=== PATIENT | male | born 1980 | race Caucasian/White ===

== ENCOUNTER 2022-10-02 17:33 | Emergency (ER) | payer MEDICAID, SELFPAY ==
--- NOTE | ~2022-10-02 | XR_ITS ---
EXAMINATION: XR shoulder LT min 2V, XR cervical spine 4V CLINICAL INFORMATION: Reason for Exam left shoulder pain ; left-sided neck pain COMPARISON: Cervical spine radiographs 09/09/2012 TECHNIQUE: 4 views left shoulder; AP, lateral, open-mouth odontoid, Fuchs, and bilateral oblique views cervical spine FINDINGS: Left shoulder: No acute fracture or dislocation. The glenohumeral joint space and acromiohumeral interval are maintained. AC joint is congruent and intact. Small periarticular ossicles/bone fragments along the superior aspect of the joint. No significant osteophyte formation. No evidence of calcific tendinopathy of the rotator cuff. The visualized left lung appears grossly clear. Cervical spine: C1-T1 are well visualized on the lateral view. Normal alignment of the cervical spine. No subluxation. No fracture or prevertebral soft tissue swelling. Atlantodens interval and C1-C2 alignment are maintained. Intervertebral disc space heights are preserved. Mild anterior endplate proliferative change at C6-C7 consistent with mild degenerative disc disease. Assessment for right neural foraminal narrowing is limited due to suboptimal positioning. Equivocal minimal right neural foraminal narrowing at C6-C7 versus artifact from positioning. No significant left neural foraminal stenosis. XR/XR cervical spine 4V IMPRESSION: 1. No acute osseous injury identified at the left shoulder. 2. No subluxation or fracture in the cervical spine. 3. Mild degenerative disc disease at C6-C7 with preserved disc space height.
--- NOTE | ~2022-10-02 | XR_ITS ---
EXAMINATION: XR shoulder LT min 2V, XR cervical spine 4V CLINICAL INFORMATION: Reason for Exam left shoulder pain ; left-sided neck pain COMPARISON: Cervical spine radiographs 09/09/2012 TECHNIQUE: 4 views left shoulder; AP, lateral, open-mouth odontoid, Fuchs, and bilateral oblique views cervical spine FINDINGS: Left shoulder: No acute fracture or dislocation. The glenohumeral joint space and acromiohumeral interval are maintained. AC joint is congruent and intact. Small periarticular ossicles/bone fragments along the superior aspect of the joint. No significant osteophyte formation. No evidence of calcific tendinopathy of the rotator cuff. The visualized left lung appears grossly clear. Cervical spine: C1-T1 are well visualized on the lateral view. Normal alignment of the cervical spine. No subluxation. No fracture or prevertebral soft tissue swelling. Atlantodens interval and C1-C2 alignment are maintained. Intervertebral disc space heights are preserved. Mild anterior endplate proliferative change at C6-C7 consistent with mild degenerative disc disease. Assessment for right neural foraminal narrowing is limited due to suboptimal positioning. Equivocal minimal right neural foraminal narrowing at C6-C7 versus artifact from positioning. No significant left neural foraminal stenosis. XR/XR shoulder LT min 2V IMPRESSION: 1. No acute osseous injury identified at the left shoulder. 2. No subluxation or fracture in the cervical spine. 3. Mild degenerative disc disease at C6-C7 with preserved disc space height.
[2022-10-02 17:51] VITALS: BP 151/101; PULSE 71; RESP 18; TEMP 36.6; O2SAT 98; BMI 26.6
--- NOTE | 2022-10-02 17:53 | ED.GENADULT ---
HPI - General Adult General Chief complaint: Extremity Injury, Upper <SHAWNA Neumann - Last Filed: 10/02/22 17:55> Stated complaint: L shoulder pain <SHAWNA Neumann - Last Filed: 10/02/22 17:55> Time Seen by Provider: 10/02/22 18:30 <SHAWNA Neumann - Last Filed: 10/02/22 17:55> Source: patient <Vanessa Costa NP - Last Filed: 10/03/22 00:16> Mode of arrival: ambulatory <Vanessa Costa NP - Last Filed: 10/03/22 00:16> Limitations: no limitations <Vanessa Costa NP - Last Filed: 10/03/22 00:16> History of Present Illness HPI narrative: 42-year-old male presents with left shoulder and neck pain that started this morning. States that it feels like more like a muscle spasm. He does not report any trauma or mechanical injury. Has full range of motion to his neck and arm. Does not report loss of sensation. <Vanessa Costa NP - Last Filed: 10/03/22 00:16> Onset (ago): day(s) (1) <Vanessa Costa NP - Last Filed: 10/03/22 00:16> Location: neck, left and upper extremity <Vanessa Costa NP - Last Filed: 10/03/22 00:16> Radiation: non-radiation <Vanessa Costa NP - Last Filed: 10/03/22 00:16> Severity: moderate <Vanessa Costa NP - Last Filed: 10/03/22 00:16> Severity scale (1-10): 6 <Vanessa Costa NP - Last Filed: 10/03/22 00:16> Quality: aching and constant <Vanessa Costa NP - Last Filed: 10/03/22 00:16> Pain Consistency: constant <Vanessa Costa NP - Last Filed: 10/03/22 00:16> Relieving factors: none <Vanessa Costa NP - Last Filed: 10/03/22 00:16> Exacerbating factors: movement <Vanessa Costa NP - Last Filed: 10/03/22 00:16> Associated symptoms: denies other symptoms <Vanessa Costa NP - Last Filed: 10/03/22 00:16> Treatments prior to arrival: NSAID and heat therapy <Vanessa Costa NP - Last Filed: 10/03/22 00:16> Related Data Home medications: Previous Rx's Medication Instructions Recorded cyclobenzaprine 10 mg tablet 10 mg PO TID PRN muscle spasm #14 10/02/22 tabs <SHAWNA Neumann - Last Filed: 10/02/22 17:55> Allergies/adverse reactions: Allergies Allergy/AdvReac Type Severity Reaction Status Date / Time No Known Allergies Allergy Unverified 06/09/20 15:59 <SHAWNA Neumann - Last Filed: 10/02/22 17:55> Review of Systems Review of Systems: Constitutional: No Fever, No Chills Cardiovascular: No Chest Pain, No SOB Respiratory: No Cough, No Dyspnea Gastrointestinal: No Nausea, No Vomiting, No Diarrhea, No abdominal Pain Musculoskeletal: positive neck and left shoulder pain, No Myalgias, No Joint Swelling Skin: No Skin lacerations, No rash Neuro: No Weakness, No Numbness, No Paresthesias, No Dizziness, No Headache <Vanessa Costa NP - Last Filed: 10/03/22 00:16> Yes all other systems are reviewed and are negative <Vanessa Costa NP - Last Filed: 10/03/22 00:16> PMFSH Past Medical History Attestation statement: The following information was validated with the patient. <Vanessa Costa NP - Last Filed: 10/03/22 00:16> Source: old records reviewed <Vanessa Costa NP - Last Filed: 10/03/22 00:16> Social History Social History: Social History Advance Directives: No Advance Directives Information Provided: No <SHAWNA Neumann Last Filed: 10/02/22 17:55> Physical Exam ED Vital Signs: Vital Signs - 24 hr 10/02/22 17:51 Temperature 97.9 F Pulse Rate 71 Respiratory Rate 18 Blood Pressure 151/101 H Pulse Oximetry 98 Oxygen Delivery Method Room Air BMI result Body Mass Index 26.6 <SHAWNA Neumann - Last Filed: 10/02/22 17:55> Vital Signs - 24 hr 10/02/22 17:51 Temperature 97.9 F Pulse Rate 71 Respiratory Rate 18 Blood Pressure 151/101 H Pulse Oximetry 98 Oxygen Delivery Method Room Air BMI result Body Mass Index 26.6 <Vanessa Costa NP - Last Filed: 10/03/22 00:16> Appearance: Alert. Oriented X3. No acute distress. Eyes: Pupils equal, round and reactive to light. ENT: Pharynx normal. Neck: Normal inspection. Neck supple. No vertebral tenderness or step-offs. No nuchal rigidity. CVS: Normal heart rate and rhythm. Pulses normal. Respiratory: No respiratory distress. Breath sounds normal. Abdomen: Soft and nontender. Skin: Skin warm and dry. Normal skin color. Normal skin turgor. Extremities: Palpable muscle spasming to the left trapezius. Full range of motion. Brisk capillary refill unequal pulses to all extremities. 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 Neuro: No motor deficit. No sensory deficit. Cranial nerves 2-12 intact. 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 Last night had bilateral neck pain and used heat to the area. XR's ordered. 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 Last night had bilateral neck pain and used heat to the area. XR's ordered. 42-year-old male presents with musculoskeletal strain to the left shoulder and neck. Patient it does have full range of motion however it is tender. He does not report any traumatic injury or repetitive motion. No indication of torticollis. No indication of nuchal rigidity vertebral tenderness or step-offs. X-rays are negative for acute findings requiring emergent intervention. Does show degenerative disc disease and symptoms consistent with arthritis to the shoulder. I did offer patient a referral to Orthopedics and prescription for cyclobenzaprine. At this time I do not feel that narcotics are indicated for this condition. The patient stated that ibuprofen and Tylenol and muscle relaxers do not work to help him with this pain. I did refer him back to his primary care physician for physical therapy referral. Patient verbalized understanding of and agrees to plan of care discharge home. Verbalized understanding of signs symptoms indicating need for emergent intervention. <Vanessa Costa NP - Last Filed: 10/03/22 00:16> Medications Administered Discontinued Medications Generic Name Dose Route Start Last Admin Trade Name Freq PRN Reason Stop Dose Admin Cyclobenzaprine HCl 10 mg 10/02/22 19:51 10/02/22 20:11 Cyclobenzaprine Hcl 10 Mg Tablet PO 10/02/22 19:52 10 mg ONCE ONE Administration Diazepam 5 mg 10/02/22 19:52 10/02/22 20:12 Diazepam 10 Mg/2 Ml Cartridge IM 10/02/22 19:53 5 mg STAT STA Administration Ketorolac Tromethamine 60 mg 10/02/22 19:51 10/02/22 20:12 Ketorolac Tromethamine 60 Mg/2 Ml Vial IM 10/02/22 19:52 60 mg ONCE ONE Administration <SHAWNA Neumann - Last Filed: 10/02/22 17:55> Medications Administered Discontinued Medications Generic Name Dose Route Start Last Admin Trade Name Freq PRN Reason Stop Dose Admin Cyclobenzaprine HCl 10 mg 10/02/22 19:51 10/02/22 20:11 Cyclobenzaprine Hcl 10 Mg Tablet PO 10/02/22 19:52 10 mg ONCE ONE Administration Diazepam 5 mg 10/02/22 19:52 10/02/22 20:12 Diazepam 10 Mg/2 Ml Cartridge IM 10/02/22 19:53 5 mg STAT STA Administration Ketorolac Tromethamine 60 mg 10/02/22 19:51 10/02/22 20:12 Ketorolac Tromethamine 60 Mg/2 Ml Vial IM 10/02/22 19:52 60 mg ONCE ONE Administration <Vanessa Costa NP - Last Filed: 10/03/22 00:16> Medical Decision Making Differential Diagnosis Differential Diagnoses: The differential diagnosis associated with the presentation includes <Vanessa Costa NP - Last Filed: 10/03/22 00:16> Spasm, degenerative disc disease, arthritis, musculoskeletal strain <Vanessa Costa NP - Last Filed: 10/03/22 00:16> Independent Interpretation I performed an independent interpretation of an: Plain X-Ray <Vanessa Costa NP - Last Filed: 10/03/22 00:16> Radiology Impression Discussion of test interpretation with radiology: I have reviewed the radiologist's reading. <YARELI North Last Filed: 10/03/22 00:16> Radiologist Impression: EXAMINATION: XR shoulder LT min 2V, XR cervical spine 4V CLINICAL INFORMATION: Reason for Exam left shoulder pain ; left-sided neck pain COMPARISON: Cervical spine radiographs 09/09/2012 TECHNIQUE: 4 views left shoulder; AP, lateral, open-mouth odontoid, Fuchs, and bilateral oblique views cervical spine FINDINGS: Left shoulder: No acute fracture or dislocation. The glenohumeral joint space and acromiohumeral interval are maintained. AC joint is congruent and intact. Small periarticular ossicles/bone fragments along the superior aspect of the joint. No significant osteophyte formation. No evidence of calcific tendinopathy of the rotator cuff. The visualized left lung appears grossly clear. Cervical spine: C1-T1 are well visualized on the lateral view. Normal alignment of the cervical spine. No subluxation. No fracture or prevertebral soft tissue swelling. Atlantodens interval and C1-C2 alignment are maintained. Intervertebral disc space heights are preserved. Mild anterior endplate proliferative change at C6-C7 consistent with mild degenerative disc disease. Assessment for right neural foraminal narrowing is limited due to suboptimal positioning. Equivocal minimal right neural foraminal narrowing at C6-C7 versus artifact from positioning. No significant left neural foraminal stenosis. XR/XR cervical spine 4V IMPRESSION: 1.? No acute osseous injury identified at the left shoulder. 2.? No subluxation or fracture in the cervical spine. 3.? Mild degenerative disc disease at C6-C7 with preserved disc space height. ? <YARELI North Last Filed: 10/03/22 00:16> External Record Review External record reviewed: Outpatient record <Vanessa Costa NP - Last Filed: 10/03/22 00:16> Prescription Management I considered prescription management with: Pain Medication <Vanessa Costa NP - Last Filed: 10/03/22 00:16> Discharge Plan Discharge Clinical Impression: Degenerative joint disease, Degenerative disc disease, cervical <SHAWNA Neumann Last Filed: 10/02/22 17:55> Patient Disposition: Home, Self-Care <SHAWNA Neumann Last Filed: 10/02/22 17:55> Instructions: Osteoarthritis (ED), Degenerative Disc Disease (ED) <SHAWNA Neumann Last Filed: 10/02/22 17:55> Additional Instructions: You were evaluated for neck and shoulder pain. X-rays indicated degenerative disc disease in your cervical spine and in your shoulder. Please consider following up with your primary care physician for physical therapy referral. You may also consider outpatient orthopedic consult for shoulder joint degeneration. I have referred you to orthopedic PA Barbara Rojas. Please call and request an appointment for a non Urgent shoulder evaluation. Please take cyclobenzaprine as needed for muscle spasms. This medication is a muscle relaxer, and this medication can delay reaction time, increased risk for falls, and cause drowsiness. Do not drive or operate machinery while taking this medication. Thank you for choosing this emergency department for evaluation. Please follow-up with primary care physician as needed. Return to the emergency department for any new, concerning, or worsening symptoms. <SHAWNA Neumann Last Filed: 10/02/22 17:55> Prescriptions: New cyclobenzaprine 10 mg tablet 10 mg PO TID PRN (Reason: muscle spasm) Qty: 14 0RF <SHAWNA Neumann Last Filed: 10/02/22 17:55> Referrals: Barbara Rojas PA-C [Physician Senior [employer]] - 2 weeks (Right shoulder arthritis) <SHAWNA Neumann Last Filed: 10/02/22 17:55> Interventions: ED Discharge Assessment Last Done: 10/02/22 20:22 <SHAWNA Neumann Last Filed: 10/02/22 17:55> Discharge Date/Time: 10/02/22 20:23 <SHAWNA Neumann - Last Filed: 10/02/22 17:55>
[2022-10-02] MEDS: Cyclobenzaprine HCl 10 MG TABLET PO (20:11)
[2022-10-02] MEDS: Ketorolac Tromethamine 60 MG/2 ML VIAL IM (20:12)
[2022-10-02] MEDS: diazePAM 10 MG/2 ML CARTRIDGE 5 MG IM (20:12)
== END 2022-10-02 20:23 | disposition home or self-care (01) ==
PROVIDERS: Emergency Provider Emergency Medicine Emergency Medical Services; PCP Nurse Practitioner Family
DX: M47.812 Spondylosis without myelopathy or radiculopathy, cervical region (principal); M50.323 Other cervical disc degeneration at C6-C7 level
CPT/HCPCS: 72050; 73030; 96372; 99282; 99283; 99284; J1885; J3360

== ENCOUNTER → 2022-10-24 10:55 | Outpatient (BNVA) | payer MEDICAID, SELFPAY | PROVIDERS: PCP Nurse Practitioner Family; Visit Provider Physician Assistant | DX: M54.2 Cervicalgia (principal) | CPT/HCPCS: 99202 ==

== ENCOUNTER → 2022-11-06 13:58 | Outpatient (BNVA) | payer MEDICAID, SELFPAY | PROVIDERS: PCP Nurse Practitioner Family; Visit Provider Nurse Practitioner Family | DX: M50.30 Other cervical disc degeneration, unspecified cervical region (principal); M96.1 Postlaminectomy syndrome, not elsewhere classified; M54.12 Radiculopathy, cervical region; M47.812 Spondylosis without myelopathy or radiculopathy, cervical region | CPT/HCPCS: 99202 ==

== ENCOUNTER 2023-02-25 09:00 | Outpatient (RCR) | payer OTHER, SELFPAY ==
[2023-01-29 09:59] VITALS: BP 126/87; PULSE 69; O2SAT 99
--- NOTE | 2023-01-29 12:55 | MHC.PT.EP ---
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 XRAY ON 10/02/22 REVEALED Mild degenerative disc disease at C6-C7 with preserved disc space height. THE Pt IS Rt HAND DOMINANT. HE HAS RESIDUAL WEAKNESS IN HIS Rt > Lt UE, DECR CERV AROM, DECR POSTURAL AWARENESS, (+) SOFT TISSUE TENSION IN MARK CERV PS MM/ UT MM, AND DECR POSTURAL AWARENESS. FUNTIONALLY, THE Pt HAS DECR LINNETTE TO DRIVING,WALKING,STANDING, ADLS AND WORK TASKS REQ INCR CERV ROM. THE Pt WOULD BENEFIT FROM PT TO ADDRESS THE ABOVE FINDINGS, EASE SOFT TISSUE TENSION , SX MGMT TECHN, AND DEV A CERVICAL STABILIZATION PROGRAM. Frequency and Duration: The patient will be seen 2 x WK x 5 WKS Short Term Goals: *Pt INDEP W SELF CORRECTION OF POSTURE *IMPROVE CERV AROM *ACTIVATE SCAP RETR *Pt'S CERV PAIN DECR TO 2-3/10 W REG ADLs/ WORK TASKS Prison Goals: *Pt'S CERV/ PROX UEs STRENGTH INCR BY 1/2 GRADE *Pt INDEP W HEP AND DEMON PROPER BODY MECH W SIMUL WORK AND ADL TASKS *Pt DEMON IMPROVED ADL LINNETTE EVIDENT IN IMPROVED NPDI (28/50 AT EVAL) Treatment Plan: Modalities to reduce pain, spasms and effusion. Manual therapy to restore motion and function. Therapeutic exercise to improve strength and flexibility. Neuromuscular re-education for posture and balance. Therapeutic activities to return to functional activities of daily living. Electronically signed by: DENIS SONI,PT Please sign and return to therapist. Thank you for your referral.
--- NOTE | 2023-05-17 14:29 | MHC.PT.DC ---
[facility] [place] Office [place] Office [place] Office [address] Rashad Lazo [address] [phone] F: [phone] F: [phone] F: [phone] F: [phone] Physical Therapy Discharge Report Diagnosis: CERVICALGIA-> CERV STABILIZATION PROGRAM Date of Surgery: Date of Evaluation: 01/29/23 Date of Discharge: 05/17/23 Treatments to Date: 5 Cancellations to Date: 2 No Shows to Date: 2 Discharge Status: Improved Function Visit Non-compliance Discharge Summary: THE Pt WAS RESPONDING WELL TO PT, ADDRESSING TISSUE TENSION IN Rt CERV/ MARK SUBOCCIP REGION, POSTURAL ED, AND DEV A HEP TO ADDRESS WEAK POST RC/ SCAP MM. THE Pt HAD POOR ATTENDANCE FOR SCHED APPTS AND IS THEREFORE D/C PER PT DEPT POLICY. Electronically signed by: DENIS SONI,PT Please sign and return to therapist. Thank you for your referral.
== END 2023-05-17 14:28 | disposition home or self-care (01) ==
LOC: HO.PT 09:00
PROVIDERS: PCP Nurse Practitioner Family; Visit Provider Physician Assistant
DX: M54.2 Cervicalgia (principal)
CPT/HCPCS: 97035; 97110; 97112; 97140; 97162